=== PATIENT | male | born 1935 | race Caucasian/White ===

== ENCOUNTER 2016-11-19 17:43 | Inpatient (IN) | payer MEDICARE, OTHER ==
[~2016-11-19] VITALS: Ht 172.7 cm; Wt 82.3 kg
[2016-11-19 18:24] LABS: HEMOGLOBIN 14.3 gm/dl (14.0-17.5); RED BLOOD COUNT 4.44 M/UL (4.20-5.50); WHITE BLOOD COUNT 13.8 K/UL (4.5-11.0)
[2016-11-19 18:48] LABS: BUN/CREATININE RATIO 16 (0-10)
[2016-11-20] MEDS ORDERED: SYNTHROID25 MCG PO (03:07)
[2016-11-20] MEDS ORDERED: GLUCOPHAGE1000 MG PO (03:07)
[2016-11-20] MEDS ORDERED: VISTARIL25 MG PO (03:07)
[2016-11-20] MEDS ORDERED: JANUVIA 100 MG100 MG PO (03:08)
[2016-11-20] MEDS ORDERED: LISINOPRIL10 MG PO (03:08)
[2016-11-20] MEDS ORDERED: FLOMAX 0.4 MG0.4 MG PO (03:08)
[2016-11-20] MEDS ORDERED: PROSCAR 5 MG TAB5 MG PO (03:18)
== END 2016-11-21 20:20 | disposition short-term general hospital (02) | DRG 65 ==
LOC: ER1 17:43 → M/S 11-20 00:50 → ZEROF 11-20 00:50 → M/S 11-20 03:01
PROVIDERS: Family Medicine; ADMIT Internal Medicine
DX: I63.9 Cerebral infarction, unspecified (principal); N39.0 Urinary tract infection, site not specified; G81.94 Hemiplegia, unspecified affecting left nondominant side; E11.9 Type 2 diabetes mellitus without complications; I10 Essential (primary) hypertension; E03.9 Hypothyroidism, unspecified; E78.5 Hyperlipidemia, unspecified; N40.0 Benign prostatic hyperplasia without lower urinary tract symptoms; M20.092 Other deformity of left finger(s); Z85.038 Personal history of other malignant neoplasm of large intestine; Z91.81 History of falling; Z79.84 Long term (current) use of oral hypoglycemic drugs; Z79.899 Other long term (current) drug therapy; Z90.49 Acquired absence of other specified parts of digestive tract; Z98.890 Other specified postprocedural states; Z82.49 Family history of ischemic heart disease and other diseases of the circulatory system
CPT/HCPCS: ECHO; 36415; 70450; 70551; 71010; 72125; 73060; 73090; 73130; 80053; 80061; 81001; 82550; 82553; 82962; 83036; 83874; 84153; 84443; 84484; 85025; 87086; 93005; 93306; 93880; 96374; 99285; J0696; J1650; J7050